=== PATIENT | female | born 1975 | race African-American/Black ===

== ENCOUNTER → 2017-06-04 | Outpatient (CLI) | payer OTHER ==
--- NOTE | 2017-06-04 14:39 | REP ---
Clinical: Shortness of breath . Comparison: None . Technique: PA and lateral. Findings: The mediastinum and cardiac silhouette are normal. The lung lynn are clear and without acute consolidation, effusion, or pneumothorax. The skeletal structures are intact and normal. Impression: 1. No acute cardiopulmonary process. Signed by Karthikeyan Connors MD 06/04/2017 12:41 P
== END ==
LOC: M SMT 12:09
PROVIDERS: ATTEND Nurse Practitioner Adult Health
DX: R06.02 Shortness of breath (principal)

== ENCOUNTER → 2017-11-14 | Outpatient (CLI) | payer OTHER ==
[2017-11-14 09:49] LABS: EOS % 1.9 % (0.0-3.0); HEMATOCRIT 27.5 % (36.0-47.0); HEMOGLOBIN 8.4 g/dl (12.0-15.5); IMMATURE GRANULOCYTE % 0.5 % (0-3.0); LYMPH % 46.6 % (24.0-44.0); MEAN CORPUSCULAR HEMOGLOBIN 22.7 pg (27.0-33.0); MEAN CORPUSCULAR HGB CONC 30.5 g/dl (32.0-36.5); MEAN CORPUSCULAR VOLUME 74.3 fl (80.0-96.0); MONO # 0.2 10^3/uL (0.0-0.8); MONO % 10.1 % (0.0-5.0); NEUTROPHILS % 39.9 % (36.0-66.0); PLATELET COUNT, AUTOMATED 274 10^3/uL (150-450); RED CELL DISTRIBUTION WIDTH 22.5 % (11.5-14.5); WHITE BLOOD COUNT 2.1 10^3/uL (4.0-10.0)
[2017-11-14 09:52] LABS: NEUTROPHILS # 0.8 10^3/uL (1.8-7.7); POSITIVE DIFF POS FLAG
[2017-11-14 10:01] LABS: FERRITIN 3 NG/ML (8-252); IRON (FE) 34 UG/DL (50-170)
[2017-11-14 10:05] LABS: REASON FOR REVIEW ANEMIA / RBC MORPH; SLIDE REVIEW Report; SOURCE PERIPHERAL SMEAR
[2017-11-14 11:54] LABS: FOLATE 19.4 NG/ML; VITAMIN B12 LEVEL 763 PG/ML
[2017-11-14 14:04] LABS: PERCENT SATURATION 7.5 % (13.2-45.0); TOTAL IRON BINDING CAPACITY 455 UG/DL (250-450)
[2017-11-19 00:07] LABS: HEMOGLOBIN A 81.3 % (96.4-98.8); HEMOGLOBIN A2 1.6 % (1.8-3.2); HEMOGLOBIN F (FETAL) 17.1 % (0.0-2.0); HGB SOLUBILITY Negative (Negative); IgA SERUM (part of Subclasses) 132 mg/dL (87-352); TISSUE TRANSGLUTAMINASE IgA <2 U/mL (0-3)
== END ==
LOC: M LAB 08:40
DX: D50.9 Iron deficiency anemia, unspecified (principal)
CPT/HCPCS: 82746

== ENCOUNTER 2017-11-25 07:39 | Day surgery (SDC) | payer OTHER ==
[2017-11-25] MEDS: NS 1,000 ML IV (08:06)
[2017-11-25] MEDS ORDERED: LIDOCAINE 2% INJ 100 MG/5 ML SDV (FOR ANES.) As Ordered (09:25)
[2017-11-25] MEDS ORDERED: PROPOFOL 500 MG/50 ML VIAL As Ordered (09:25)
[2017-11-25] MEDS ORDERED: fentaNYL 100 MCG/2 ML INJECTION (J3010) As Ordered (09:25)
== END 2017-11-25 10:40 | disposition home or self-care (01) ==
LOC: M OPP 07:39
DX: D50.9 Iron deficiency anemia, unspecified (principal); K62.89 Other specified diseases of anus and rectum; K29.70 Gastritis, unspecified, without bleeding; K29.80 Duodenitis without bleeding; J45.909 Unspecified asthma, uncomplicated; Z79.899 Other long term (current) drug therapy
CPT/HCPCS: 45378

== ENCOUNTER → 2018-03-03 | Outpatient (CLI) | payer OTHER | LOC: M RAD 14:28 | DX: N60.31 Fibrosclerosis of right breast (principal); N60.32 Fibrosclerosis of left breast | CPT/HCPCS: 77067 ==

== ENCOUNTER → 2019-04-19 | Outpatient (CLI) | payer OTHER ==
[~2019-04-19] MED LIST: FERR1TAB8 PO; FLUO20CA19 PO; HYDR50TA70 PO; PROAAER10 INH; TRAZ-163 PO
--- NOTE | 2019-04-19 09:24 | REPMRS ---
Patient History The patient states she has not had a clinical breast exam in over a year. Family history of prostate cancer in maternal grandfather. The [place] lifetime risk for breast cancer is 10.0%. Digital Mammo Screening Bilat: April 19, 2019 - Exam #: [id number] Bilateral CC and MLO view(s) were taken. Technologist: Josy Lopes, Technologist Prior study comparison: March 03, 2018, bilateral digital mammo screening bilat performed at [facility]. FINDINGS: The breast tissue is heterogeneously dense. This may lower the sensitivity of mammography. There has been no change in the appearance of the mammogram from the prior studies. There is a moderate amount of residual fibroglandular tissue which is fairly symmetric. There is no interval development of dominant mass, areas of architectural distortion, or clustered microcalcification typical of malignancy. Assessment: BI-RADS/ACR category 1 mammogram. Negative Mammogram. Recommendation Routine screening mammogram in 1 year (for women over age 40). This mammogram was interpreted with the aid of an FDA-approved computer-aided dectection system. Electronically Signed By: Sree Carvajal MD 04/19/19 0975
== END ==
LOC: M RAD 07:28
PROVIDERS: ATTEND Physician Assistant
DX: Z12.31 Encounter for screening mammogram for malignant neoplasm of breast (principal)

== ENCOUNTER 2019-08-17 08:42 | Outpatient (CLI) | payer OTHER ==
[~2019-08-17] VITALS: Ht 165.1 cm; Wt 68.0 kg
[~2019-08-17 08:42] MED LIST changes: -TRAZ-163 PO; +TRAZ-257 PO
[2019-08-17 08:50] VITALS: BP 120/56
[2019-08-17] MEDS ORDERED: IRON SUCROSE 300 MG in NS 250 ML OVER 90 MIN. IV ONE (09:00)
[2019-08-17 09:40] VITALS: BP 109/59
[2019-08-17 10:15] VITALS: BP 99/56
[2019-08-17 11:13] VITALS: BP 109/66
[2019-08-17 12:29] VITALS: BP 116/67
== END 2019-08-17 12:35 | disposition home or self-care (01) ==
LOC: M INFU 08:42
PROVIDERS: ATTEND Obstetrics & Gynecology
DX: D50.9 Iron deficiency anemia, unspecified (principal); N93.9 Abnormal uterine and vaginal bleeding, unspecified
CPT/HCPCS: 96365; 96366; J1756

== ENCOUNTER 2019-08-24 08:25 | Outpatient (CLI) | payer OTHER ==
[~2019-08-24] VITALS: Ht 165.1 cm; Wt 68.0 kg
[2019-08-24 08:35] VITALS: BP 114/57
[2019-08-24] MEDS ORDERED: IRON SUCROSE 300 MG in NS 250 ML OVER 90 MIN. IV ONE (09:00)
[2019-08-24 09:55] VITALS: BP 111/65
[2019-08-24 12:00] VITALS: BP 112/69
== END 2019-08-24 12:00 | disposition home or self-care (01) ==
LOC: M INFU 08:25
PROVIDERS: ATTEND Obstetrics & Gynecology
DX: D50.9 Iron deficiency anemia, unspecified (principal); N93.9 Abnormal uterine and vaginal bleeding, unspecified
CPT/HCPCS: 96365; 96366; J1756

== ENCOUNTER 2019-08-31 08:31 | Outpatient (CLI) | payer OTHER ==
[~2019-08-31] VITALS: Ht 165.1 cm; Wt 68.0 kg
[~2019-08-31 08:31] MED LIST changes: -FLUO20CA19 PO; +FLUO20CA22 PO
[2019-08-31 08:45] VITALS: BP 108/59
[2019-08-31] MEDS ORDERED: IRON SUCROSE 300 MG in NS 250 ML OVER 90 MIN. IV ONE (09:30)
[2019-08-31 10:49] VITALS: BP 116/56
== END 2019-08-31 10:50 | disposition home or self-care (01) ==
LOC: M INFU 08:31
PROVIDERS: ATTEND Obstetrics & Gynecology
DX: D50.9 Iron deficiency anemia, unspecified (principal); N93.9 Abnormal uterine and vaginal bleeding, unspecified
CPT/HCPCS: 96365; 96366; J1756